=== PATIENT | female | born 1995 | race Caucasian/White ===

== ENCOUNTER 2016-12-31 11:55 | Emergency (ER) | payer OTHER ==
[2016-12-31 12:03] VITALS: BP 126/71; PULSE 91; TEMP 98.2; BMI 29.2
--- NOTE | 2016-12-31 12:53 | PDOC ---
History of Present Illness - General Chief Complaint: Back Pain Stated Complaint: LOWER BACK PAIN Time Seen by Provider: 12/31/16 12:39 History Source: Patient Exam Limitations: No Limitations - History of Present Illness Initial Comments: 12/31/16 12:53 My chief complaint: Lower back pain for 2 weeks History of present illness: Patient is a 21-year-old female with a history of asthma here today planing of continuous lower back pain 2 weeks. Patient reports that she works at [employer] at this heavy lifting. Patient also reports that she was seen 6 days ago at [facility] emergency room had an x-ray of her back that showed nothing and was given a prescription for ibuprofen and cyclobenzaprine. Patient returned 2 days later due to continued pain and lower back. Patient reports that it is hard to get up from a lying down position. Patient denies any radiation of pain down her buttocks but slightly bilaterally to towards hips. Patient denies any incontinency or any tingling of her legs. Patient is unsure status. Patient last took ibuprofen last night. Patient currently reports the pain is a 6 out of 10. 12/31/16 14:17 12/31/16 14:17 Occurred: reports: other (2 weeks ) Severity: reports: moderate Pain Location: reports: back (lower back radiates intermittently to b/l hip area ) Method of Injury: Yes: other Modifying Factors: improves with: None Loss of Consciousness: no loss of consciousness Associated Symptoms (Fall): denies symptoms Past History - Past Medical History Allergies/Adverse Reactions: Allergies Allergy/AdvReac Type Severity Reaction Status Date / Time acetaminophen [From Tylenol] Allergy Severe ANAPHYLAXIS Verified 12/31/16 12:01 Home Medications: Ambulatory Orders Metaxalone [Skelaxin] 800 mg PO TID PRN #15 tablet MDD 3 12/31/16 Naproxen [Naprosyn -] 500 mg PO BID PRN #14 tablet MDD w 12/31/16 Asthma: Yes - Surgical History Abdominal Surgery: Yes Appendectomy: Yes Cholecystectomy: Yes - Suicide/Smoking/Psychosocial Hx Smoking Status: Yes Smoking History: Current every day smoker Have you smoked in the past 12 months: Yes Number of Cigarettes Smoked Daily: 6 Information on smoking cessation initiated: No Hx Alcohol Use: Yes (SOCIAL.) Drug/Substance Use Hx: Yes (MARIJUANA.) Substance Use Type: Alcohol, Marijuana Review of Systems - Review of Systems Able to Perform ROS?: Yes Constitutional: No: Symptoms Reported HEENTM: No: Symptoms Reported Respiratory: No: Symptoms reported Cardiac (ROS): No: Symptoms Reported ABD/GI: No: Symptoms Reported : No: Symptoms Reported Musculoskeletal: Yes: Back Pain (lower back radiates to b/l hip) Integumentary: No: Symptoms Reported Neurological: No: Symptoms reported *Physical Exam - Vital Signs Last Vital Signs Temp Pulse Resp BP Pulse Ox 98.2 F 91 H 18 126/71 99 12/31/16 11:57 12/31/16 11:57 12/31/16 11:57 12/31/16 11:57 12/31/16 11:57 - Physical Exam General Appearance: Yes: Appropriately Dressed Respiratory/Chest: positive: Lungs Clear, Normal Breath Sounds. negative: Chest Tender, Respiratory Distress Cardiovascular: positive: Regular Rhythm, Regular Rate, S1, S2 Vascular Pulses: Dorsalis-Pedis (R): 4+, Doralis-Pedis (L): 4+ Musculoskeletal: positive: Normal Inspection, Decreased Range of Motion (from waist with flexion), Other (tenderness b/l paraspinal lumbar muscles, no step off ). negative: CVA Tenderness, CVA Tenderness (R), CVA Tenderness (L), Vertebral Tenderness Extremity: positive: Normal Capillary Refill, Normal Inspection, Normal Range of Motion Integumentary: positive: Normal Color Neurologic: positive: Alert, Normal Response, Motor Strength 5/5 (legs b/l ), Respond to painful stimul (legs b/l ), Responsive. negative: Numbness, Sensory Deficit Deep Tendon Reflexes: Knee (L): 4+, Knee (R): 4+ Medical Decision Making - Medical Decision Making 12/31/16 13:41 12/31/16 14:17 Patient is a 21-year-old female with a history of asthma here today planing of continuous lower back pain 2 weeks. Patient reports that she works at [employer] at this heavy lifting. Patient also reports that she was seen 6 days ago at [facility] emergency room had an x-ray of her back that showed nothing and was given a prescription for ibuprofen and cyclobenzaprine. Patient returned 2 days later due to continued pain and lower back. Patient reports that it is hard to get up from a lying down position. Patient denies any radiation of pain down her buttocks but slightly bilaterally to towards hips. Patient denies any incontinency or any tingling of her legs. Patient is unsure status. Patient last took ibuprofen last night. Patient currently reports the pain is a 6 out of 10. lower back pain PLAN: urine HCG negative Toradol 60 mg IM skelaxin 500 mg tid prn muscle spasm X 15 Naprosyn 500 mg bid prn pain # 14 Patient has less pain currently however still has some muscle spasm and lower back will give Valium 5 mg by mouth now 12/31/16 14:51 *DC/Admit/Observation/Transfer Diagnosis at time of Disposition: Low back pain Qualifiers: Chronicity: acute Back pain laterality: bilateral Sciatica presence: without sciatica Qualified Code(s): M54.5 - Low back pain - Discharge Dispostion Disposition: HOME Condition at time of disposition: Stable - Prescriptions Prescriptions: Naproxen [Naprosyn -] 500 mg PO BID PRN #14 tablet MDD w PRN Reason: Pain Metaxalone [Skelaxin] 800 mg PO TID PRN #15 tablet MDD 3 PRN Reason: Muscle Spasms - Referrals Referrals: Piotr Vivar MD [Staff Physician] - - Patient Instructions Additional Instructions: Avoid any strenuous activities or lifting Follow up with orthopedist as soon as possible for further evaluation Return to emergency room if symptoms worsen or new symptoms develop Patient voiced understanding of discharge instructions and all questions were answered - Post Discharge Activity Forms/Work/School Notes: Back to Work
[2016-12-31] MEDS ORDERED: KETOROLAC TROMETHAMINE 60 MG/2 ML VIAL IM ONE (13:29)
[2016-12-31] MEDS ORDERED: KETOROLAC TROMETHAMINE 60 MG/2 ML VIAL ONE (13:32)
[2016-12-31] MEDS ORDERED: diazePAM 5 MG TABLET PO ONE (14:16)
[2016-12-31] MEDS ORDERED: diazePAM 5 MG TABLET ONE (14:18)
== END 2016-12-31 14:59 | disposition home or self-care (01) ==
LOC: JERFT 11:55
PROC: 3E0233Z Introduction of Anti-inflammatory into Muscle, Percutaneous Approach (ICD-10-PCS; principal; 2016-12-31)
DX: M54.5 Low back pain (principal)
CPT/HCPCS: 84703; 99281-25

== ENCOUNTER 2017-01-11 17:20 | Emergency (ER) | payer OTHER ==
[2017-01-11 17:24] VITALS: BP 122/73; PULSE 110; TEMP 98; BMI 31.2
[2017-01-11] MEDS ORDERED: KETOROLAC TROMETHAMINE 60 MG/2 ML VIAL IM ONE (18:00)
[2017-01-11] MEDS ORDERED: KETOROLAC TROMETHAMINE 60 MG/2 ML VIAL ONE (18:05)
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
== END 2017-01-11 19:53 | disposition home or self-care (01) ==
LOC: JER 17:20 → JERFT 17:20
PROC: 3E0233Z Introduction of Anti-inflammatory into Muscle, Percutaneous Approach (ICD-10-PCS; principal; 2017-01-11)
DX: S30.0XXA Contusion of lower back and pelvis, initial encounter (principal); S70.02XA Contusion of left hip, initial encounter; V89.2XXA Person injured in unspecified motor-vehicle accident, traffic, initial encounter; Y93.89 Activity, other specified; Y92.414 Local residential or business street as the place of occurrence of the external cause; Y99.8 Other external cause status
CPT/HCPCS: 72100-TC; 73523-TC; 84703; 96372; 99281-25

== ENCOUNTER 2017-07-03 10:26 | Emergency (ER) | payer OTHER ==
[2017-07-03 10:31] VITALS: BP 115/69; PULSE 100; TEMP 98.4; BMI 31.2
[2017-07-03] MEDS ORDERED: ALBUTEROL SO4 2.5/IPRATROPIUM 0.5 INH SOL 3 ML VIAL.NEB. NEB ONE ×2 (11:03→11:14)
--- NOTE | 2017-07-03 11:22 | PDOC ---
History of Present Illness - General Chief Complaint: Cold Symptoms Stated Complaint: FLU LIKE SYMPTOMS Time Seen by Provider: 07/03/17 10:53 History Source: Patient Exam Limitations: No Limitations - History of Present Illness Initial Comments: 07/03/17 and came for evaluation of cough, runny nose, generalized body aches, and fevers. States has had thick yellow phlegm production with cough, and fevers Tmax 101.8. Timing/Duration: reports: getting worse Severity: reports: mild, moderate Associated Symptoms: reports: cough, fever/chills, nasal congestion, nasal drainage Past History - Travel Traveled outside of the country in the last 30 days: No Close contact w/someone who was outside of country & ill: No - Past Medical History Allergies/Adverse Reactions: Allergies Allergy/AdvReac Type Severity Reaction Status Date / Time acetaminophen [From Tylenol] Allergy Severe ANAPHYLAXIS Verified 07/03/17 10:31 Home Medications: Ambulatory Orders Albuterol Sulfate [Proventil HFA Inhaler -] 1 - 2 inh PO QID #1 inhaler Azithromycin [Zithromax -] 250 mg PO UTDICT #6 tab 07/03/17 Asthma: Yes COPD: No - Surgical History Abdominal Surgery: Yes Appendectomy: Yes Cholecystectomy: Yes - Suicide/Smoking/Psychosocial Hx Smoking Status: Yes Smoking History: Current every day smoker Have you smoked in the past 12 months: Yes Number of Cigarettes Smoked Daily: 10 Information on smoking cessation initiated: Yes 'Breaking Loose' booklet given: 07/03/17 Hx Alcohol Use: No Drug/Substance Use Hx: No Substance Use Type: Alcohol, Marijuana Review of Systems - Review of Systems Able to Perform ROS?: Yes Is the patient limited Sinhala proficient: Yes Constitutional: Yes: Symptoms Reported, See HPI, Fever, Malaise HEENTM: Yes: See HPI, Ear Discharge, Nose Congestion. No: Symptoms Reported Respiratory: Yes: Symptoms reported, See HPI, Cough, Wheezing ABD/GI: Yes: See HPI, Nausea. No: Symptoms Reported : No: Symptoms Reported Integumentary: Yes: Symptoms Reported All Other Systems: Reviewed and Negative *Physical Exam - Vital Signs Last Vital Signs Temp Pulse Resp BP Pulse Ox 98.4 F 100 H 18 115/69 99 07/03/17 10:29 07/03/17 10:29 07/03/17 10:29 07/03/17 10:29 07/03/17 10:29 - Physical Exam General Appearance: Yes: Nourished, Appropriately Dressed. No: Apparent Distress HEENT: positive: YEHUDA, TMs Normal, Pharynx Normal, Nasal Congestion, Rhinorrhea Neck: positive: Tender, Supple, Lymphadenopathy (R), Lymphadenopathy (L) Respiratory/Chest: positive: Lungs Clear, Normal Breath Sounds, Wheezing. negative: Chest Tender Gastrointestinal/Abdominal: positive: Soft. negative: Normal Bowel Sounds Extremity: positive: Normal Capillary Refill, Normal Inspection, Normal Range of Motion Integumentary: positive: Dry, Warm, Pale Neurologic: positive: Fully Oriented, Alert, Normal Mood/Affect, Normal Response , Motor Strength 5/5 Progress Note - Progress Note Progress Note: Bronchitis, will treat with azithromycin and continued Proventil. *DC/Admit/Observation/Transfer Diagnosis at time of Disposition: URI, acute - Discharge Dispostion Disposition: HOME Condition at time of disposition: Stable Admit: No - Prescriptions Prescriptions: Albuterol Sulfate [Proventil HFA Inhaler -] 1 - 2 inh PO QID #1 inhaler Azithromycin [Zithromax -] 250 mg PO UTDICT #6 tab - Referrals - Patient Instructions Printed Discharge Instructions: DI for Acute Bronchitis Additional Instructions: Rest, drink lots of fluids: Teas, water, soups, Pedialyte Saltwater gargles Steamy showers/seem to face break up mucus Avoid contact with others until fevers and cough resolved Lots of handwashing and good hygiene Continue [id number] medications for symptomatic relief Tylenol or Motrin for fever and pain Continue albuterol nebulizers every 4-6 hours for the next 2 days then as needed for continued cough Azithromycin as directed Followup with private physician in one to 2 days Return to emergency department / pediatric hospital for worsened symptoms, fevers, dehydration - Post Discharge Activity Forms/Work/School Notes: Back to Work
== END 2017-07-03 11:33 | disposition home or self-care (01) ==
LOC: JERFT 10:26
PROC: 3E0F7GC Introduction of Other Therapeutic Substance into Respiratory Tract, Via Natural or Artificial Opening (ICD-10-PCS; principal; 2017-07-03)
DX: J06.9 Acute upper respiratory infection, unspecified (principal); F17.210 Nicotine dependence, cigarettes, uncomplicated
CPT/HCPCS: 84703; 94640; 99281-25

== ENCOUNTER 2017-07-30 09:41 | Emergency (ER) | payer OTHER ==
[2017-07-30 09:56] VITALS: TEMP 98.3; BMI 31.2
--- NOTE | 2017-07-30 10:13 | PDOC ---
History of Present Illness - General History Source: Patient Exam Limitations: No Limitations - History of Present Illness Initial Comments: 07/30/17 10:42 The patient is a 21-year-old female, with a significant past medical history of asthma, who presents to the ED with 2 days of bilateral abdominal cramping and lower back pain. She describes the pain as intermittent (lasting 3-4 hours before resolving on its own), tight and crampy in sensation, 7/10 in severity, with radiation to suprapubic area, exacerbated when lying down, and alleviated with sitting up. The patient also reports associated nausea, shortness of breath , and lightheadedness. The patient's last menstrual period was at the beginning of June and was normal; she is unsure if she could be . She denies taking any contraceptives. The patient denies any fever, chills, vomiting, or diarrhea. Denies any chest pain. Allergies: acetaminophen Surgical History: Appendectomy, Cholecystectomy <Araseli Greene - Last Filed: 07/30/17 10:41> <Chanell Henley - Last Filed: 07/30/17 11:50> - General Chief Complaint: Pain Stated Complaint: ABD PAIN Time Seen by Provider: 07/30/17 10:06 Past History <Araseli Greene - Last Filed: 07/30/17 10:41> - Past Medical History Asthma: Yes COPD: No - Surgical History Abdominal Surgery: Yes Appendectomy: Yes Cholecystectomy: Yes - Suicide/Smoking/Psychosocial Hx Smoking Status: Yes Smoking History: Current every day smoker Have you smoked in the past 12 months: Yes Number of Cigarettes Smoked Daily: 5 Information on smoking cessation initiated: No 'Breaking Loose' booklet given: 07/03/17 Hx Alcohol Use: Yes (occasional) Drug/Substance Use Hx: No Substance Use Type: Marijuana <Chanell Henley - Last Filed: 07/30/17 11:50> - Past Medical History Allergies/Adverse Reactions: Allergies Allergy/AdvReac Type Severity Reaction Status Date / Time acetaminophen [From Tylenol] Allergy Severe ANAPHYLAXIS Verified 07/30/17 09:56 Home Medications: Ambulatory Orders Albuterol Sulfate [Proventil HFA Inhaler -] 1 - 2 inh PO QID #1 inhaler Azithromycin [Zithromax -] 250 mg PO UTDICT #6 tab 07/03/17 Ibuprofen [Motrin -] 600 mg PO TID PRN #15 tablet 07/30/17 Review of Systems - Review of Systems Able to Perform ROS?: Yes Comments:: 07/30/17 10:45 GENERAL/CONSTITUTIONAL: No fever or chills. No weakness. HEAD, EYES, EARS, NOSE AND THROAT: No change in vision. No ear pain or discharge. No sore throat. CARDIOVASCULAR: (+)shortness of breath. No chest pain. RESPIRATORY: No cough, wheezing, or hemoptysis. GASTROINTESTINAL: (+)Nausea. No vomiting, diarrhea or constipation. GENITOURINARY: No dysuria, frequency, or change in urination. MUSCULOSKELETAL: (+)Lower back pain. No joint swelling or pain. No neck. SKIN: No rash NEUROLOGIC: (+)lightheadedness. No headache, vertigo, loss of consciousness, or change in strength/sensation. ENDOCRINE: No increased thirst. No abnormal weight change. HEMATOLOGIC/LYMPHATIC: No anemia, easy bleeding, or history of blood clots. ALLERGIC/IMMUNOLOGIC: No hives or skin allergy. <Araseli Greene - Last Filed: 07/30/17 10:41> *Physical Exam - Vital Signs Last Vital Signs Temp Pulse Resp BP Pulse Ox 98.3 F 79 17 112/63 100 07/30/17 09:47 07/30/17 09:47 07/30/17 09:47 07/30/17 09:47 07/30/17 09:47 - Physical Exam Comments: 07/30/17 11:00 GENERAL: Awake, alert, and fully oriented, in no acute distress HEAD: No signs of trauma EYES: PERRLA, EOMI, sclera anicteric, conjunctiva clear ENT: Auricles normal inspection, hearing grossly normal, nares patent, oropharynx clear without exudates. Moist mucosa NECK: Normal ROM, supple, no lymphadenopathy, JVD, or masses LUNGS: Breath sounds equal, clear to auscultation bilaterally. No wheezes, and no crackles HEART: Regular rate and rhythm, normal S1 and S2, no murmurs, rubs or gallops ABDOMEN: (+)suprapubic and bilateral pelvic tenderness to palpation. Soft, normoactive bowel sounds. No guarding, no rebound. No masses MSK: No CVA tenderness. EXTREMITIES: Normal range of motion, no edema. No clubbing or cyanosis. No cords, erythema, or tenderness NEUROLOGICAL: Cranial nerves II through XII grossly intact. Normal speech, normal gait SKIN: Warm, Dry, normal turgor, no rashes or lesions noted <Araseli Greene - Last Filed: 07/30/17 10:41> - Vital Signs Last Vital Signs Temp Pulse Resp BP Pulse Ox 98.3 F 79 17 112/63 100 07/30/17 09:47 07/30/17 09:47 07/30/17 09:47 07/30/17 09:47 07/30/17 09:47 <Chanell Henley - Last Filed: 07/30/17 11:50> ED Treatment Course - LABORATORY CBC & Chemistry Diagram: 07/30/17 10:18 - ADDITIONAL ORDERS Additional order review: Laboratory Results 07/30/17 10:18 Urine Color Straw Urine Appearance Slcloudy Urine pH 5.0 Ur Specific [place] 1.012 Urine Protein Negative Urine Glucose (UA) Negative Urine Ketones Negative Urine Blood Negative Urine Nitrite Negative Urine Bilirubin Negative Urine Urobilinogen Negative Ur Leukocyte Esterase Negative - Medications Given in the ED: ED Medications Discontinued Medications Generic Name Dose Route Start Last Admin Trade Name Freq PRN Reason Stop Dose Admin Ondansetron HCl 4 mg 07/30/17 10:25 07/30/17 10:29 Zofran Odt - SL 07/30/17 10:26 4 mg ONCE ONE Administration <Araseli Greene - Last Filed: 07/30/17 10:41> - LABORATORY CBC & Chemistry Diagram: 07/30/17 10:40 07/30/17 10:18 <Chanell Henley - Last Filed: 07/30/17 11:50> Medical Decision Making - Medical Decision Making 07/30/17 10:40 a/p: 21yo female with 2 days of crampy lower abd pain that radiates to her back assoc with nausea -concern for poss -normal bm today, no vomiting, no f/c -c/o breast tenderness today and for a baxter yesterday -c/o clear vaginal discharge -will obtain labs, pelvic u/s, beta hcg, type and scree -will monitor and reassess 07/30/17 11:44 re-eval: labs reviewed ovarian cyst on ultrasound normal renal, liver, pancreas labs ua clean pt states feeling much better discussed beta negative and patient is not discussed followup with her HUMAN SERVICE SPECIALIST - pt states she needs a referral for scraper hand follow up answered all questions stable for d/c to home <Chanell Henley - Last Filed: 07/30/17 11:50> *DC/Admit/Observation/Transfer - Attestations Scribe Attestion: 07/30/17 11:02 Documentation prepared by Araseli Greene, acting as medical record librarian for Chanell Henley DO. <Araseli Greene - Last Filed: 07/30/17 10:41> - Discharge Dispostion Admit: No - Attestations Physician Attestion: 07/30/17 11:50 I, Dr. Chanell Henley DO, attest that this document has been prepared under my direction and personally reviewed by me in its entirety. I further attest, that it accurately reflects all work, treatment, procedures and medical decision -making performed by me. <Chanell Henley - Last Filed: 07/30/17 11:50> Diagnosis at time of Disposition: Low back pain, Abdominal pain, Ovarian cyst - Discharge Dispostion Disposition: HOME Condition at time of disposition: Stable - Prescriptions Prescriptions: Ibuprofen [Motrin -] 600 mg PO TID PRN #15 tablet PRN Reason: Pain - Referrals Referrals: Heladio Miles MD [Staff Physician] - Stephy Mcfadden MD [Staff Physician] - - Patient Instructions Printed Discharge Instructions: DI for Ovarian Cyst, DI for Abdominal Pain- Adult Additional Instructions: Please take all meds as prescribed. Please make an appointment to see the ob/ quick mixer operator. Please return to the ED with any further concerns or complaints. Please also follow up with your HUMAN SERVICE SPECIALIST. - Post Discharge Activity Forms/Work/School Notes: Back to Work
[2017-07-30] MEDS ORDERED: ONDANSETRON *ODT* 4 MG TABLET SL ONE (10:25)
[2017-07-30 10:31] LABS: URINE APPEARANCE SLCLOUDY; URINE BILIRUBIN NEGATIVE (<2.0 mg/dL); URINE COLOR STRAW; URINE GLUCOSE (UA) NEGATIVE (NEGATIVE); URINE KETONE NEGATIVE (NEGATIVE); URINE LEUK ESTERASE NEGATIVE (NEGATIVE); URINE NITRITE NEGATIVE (NEGATIVE); URINE PROTEIN NEGATIVE (NEGATIVE); URINE UROBILINOGEN NEGATIVE mg/dL (0.2-1.0)
[2017-07-30] MEDS ORDERED: ONDANSETRON *ODT* 4 MG TABLET ONE (10:36)
[2017-07-30 10:56] LABS: ALBUMIN 3.7 g/dl (3.4-5.0); ANION GAP 8 (8-16); BILIRUBIN,TOTAL 0.2 mg/dL (0.2-1.0); BLOOD UREA NITROGEN 14 mg/dL (7-18); CALCIUM 8.3 mg/dL (8.5-10.1); CHLORIDE 107 mmol/L (98-107); CO2 26 mmol/L (21-32); CREATININE 0.6 mg/dL (0.55-1.02); GLUCOSE,RANDOM 92 mg/dL (74-106); POTASSIUM 4.6 mmol/L (3.5-5.1); SGOT/AST 17 U/L (15-37); SGPT/ALT 20 U/L (12-78); SODIUM 141 mmol/L (136-145); TOT PROT 6.6 g/dl (6.4-8.2)
[2017-07-30 10:58] LABS: ALK PHOS 100 U/L (45-117)
[2017-07-30 11:17] LABS: BASO % 0.8 % (0-2.0); EOS % 2.9 % (0-4.5); HEMATOCRIT 43.3 % (32.4-45.2); HEMOGLOBIN 14.4 GM/dL (10.7-15.3); LYMPH % 20.6 % (8-40); MCH 29.3 pg (25.7-33.7); MCHC 33.2 g/dl (32.0-36.0); MEAN PLT VOLUME 8.6 fl (7.5-11.1); MONO % 8.2 % (3.8-10.2); NEUT % 67.5 % (42.8-82.8); RBC 4.92 M/mm3 (3.60-5.2); RDW 13.9 % (11.6-15.6); WHITE BLOOD COUNT 8.9 K/mm3 (4.0-10.0)
[2017-07-30] MEDS ORDERED: IBUPROFEN 600 MG TABLET (FP) PO ONE ×2 (11:19→11:44)
[2017-07-30 11:47] LABS: PLATELET COUNT 230 K/MM3 (134-434)
[2017-07-30 12:10] VITALS: BP 101/68; PULSE 59
== END 2017-07-30 12:10 | disposition home or self-care (01) ==
LOC: JER 09:41
DX: N83.201 Unspecified ovarian cyst, right side (principal); F17.210 Nicotine dependence, cigarettes, uncomplicated
CPT/HCPCS: 36415; 76817-TC; 80053; 81003; 83690; 84702; 85025; 86850; 86900; 86901; 99282-25; Q0162

== ENCOUNTER 2018-06-25 18:46 | Emergency (ER) | payer OTHER ==
[2018-06-25 18:56] VITALS: BP 126/78; PULSE 114; BMI 30.8
--- NOTE | 2018-06-25 20:04 | PDOC ---
History of Present Illness - General Chief Complaint: Injury Stated Complaint: LEFT ANKLE INJURY Time Seen by Provider: 06/25/18 19:37 Past History - Past Medical History Allergies/Adverse Reactions: Allergies Allergy/AdvReac Type Severity Reaction Status Date / Time acetaminophen [From Tylenol] Allergy Severe ANAPHYLAXIS Verified 06/25/18 18:55 Home Medications: Ambulatory Orders Ibuprofen 800 mg PO TID #30 tablet 06/25/18 oxyCODONE HCL [Roxicodone -] 5 mg PO Q6H #15 tablet MDD 4 06/25/18 Asthma: Yes COPD: No - Surgical History Abdominal Surgery: Yes Appendectomy: Yes Cholecystectomy: Yes - Suicide/Smoking/Psychosocial Hx Smoking Status: Yes Smoking History: Never smoked Have you smoked in the past 12 months: Yes Number of Cigarettes Smoked Daily: 10 'Breaking Loose' booklet given: 07/03/17 Hx Alcohol Use: No Drug/Substance Use Hx: No Substance Use Type: Alcohol, Marijuana *Physical Exam - Vital Signs Last Vital Signs Temp Pulse Resp BP Pulse Ox 114 H 18 126/78 98 06/25/18 18:52 06/25/18 18:52 06/25/18 18:52 06/25/18 18:52 *DC/Admit/Observation/Transfer Diagnosis at time of Disposition: Ankle sprain Qualifiers: Encounter type: initial encounter Involved ligament of ankle: unspecified ligament Laterality: left Qualified Code(s): S93.402A - Sprain of unspecified ligament of left ankle, initial encounter Navicular fracture of ankle Qualifiers: Encounter type: initial encounter Fracture type: closed Fracture alignment: nondisplaced Laterality: left Qualified Code(s): S92.255A - Nondisplaced fracture of navicular [scaphoid] of left foot, initial encounter for closed fracture - Discharge Dispostion Disposition: HOME Condition at time of disposition: Stable Decision to Admit order: No - Prescriptions Prescriptions: Ibuprofen 800 mg PO TID #30 tablet oxyCODONE HCL [Roxicodone -] 5 mg PO Q6H #15 tablet MDD 4 - Referrals Referrals: Piotr Vivar MD [Staff Physician] - - Patient Instructions Printed Discharge Instructions: DI for Foot Fracture, DI for Ankle Sprain Additional Instructions: You sprained your ankle. You also have a fracture of the navicular bone in your foot Your ultrasound was negative for fracture Wear the hard sole shoe and use the crutches until you can see orthopedics Please keep your ankle elevated while at rest above the level of your heart to reduce swelling. You may take Motrin 800 mg every 8 hours to help reduce pain and swelling. You may take Roxicodone every 6 hours as needed for break through pain. Do not drink or drive after taking this medication as it may make you sleepy. Please ice the area for 20 minute intervals at least 5 times a day to help reduce swelling. Please wear the Ankit wrap. Please follow-up with orthopedics [email or web address] Return to the emergency department if you have worsening pain, or unable to walk , numbness and tingling of the foot, or had any changes in her symptoms. - Post Discharge Activity Forms/Work/School Notes: Back to Work
[2018-06-25] MEDS ORDERED: oxyCODONE HCL 5 MG TABLET PO ONE (21:10)
[2018-06-25] MEDS ORDERED: IBUPROFEN 600 MG TABLET (FP) PO ONE ×2 (21:11→21:13)
[2018-06-25] MEDS ORDERED: oxyCODONE HCL 5 MG TABLET ONE (21:13)
== END 2018-06-25 23:08 | disposition home or self-care (01) ==
LOC: JERFT 18:46
DX: S92.255A Nondisplaced fracture of navicular [scaphoid] of left foot, initial encounter for closed fracture (principal); S93.402A Sprain of unspecified ligament of left ankle, initial encounter; X50.1XXA Overexertion from prolonged static or awkward postures, initial encounter; Y93.01 Activity, walking, marching and hiking; Y92.89 Other specified places as the place of occurrence of the external cause; Y99.8 Other external cause status
CPT/HCPCS: 73610-TC-LT-FY; 73630-TC-LT; 93971-TC; 99281-25

== ENCOUNTER 2019-12-11 11:40 | Emergency (ER) | payer OTHER ==
--- NOTE | 2019-12-11 11:49 | PDOC ---
Rapid Medical Evaluation Time Seen by Provider: 12/11/19 11:45 Medical Evaluation: Allergies Allergy/AdvReac Type Severity Reaction Status Date / Time acetaminophen [From Tylenol] Allergy Severe ANAPHYLAXIS Verified 12/11/19 11:42 12/11/19 11:47 I have performed a brief in-person evaluation of this patient The patient presents with a chief complaint of:n/v/d w/ abd pain x 1 week. No weakness/dizziness, uri sxs, f/c. No recent travel or sick contacts Pertinent physical exam findings:stable, well warren I have ordered the following:ua/upreg The patient will proceed to the ED for further evaluation Discharge Disposition - Diagnosis Nausea and vomiting Qualifiers: Vomiting type: unspecified Vomiting Intractability: intractable Qualified Code(s): R11.2 - Nausea with vomiting, unspecified Diarrhea Qualifiers: Diarrhea type: unspecified type Qualified Code(s): R19.7 - Diarrhea, uns pecified - Referrals - Patient Instructions - Post Discharge Activity
[2019-12-11 11:51] VITALS: BMI 34.2
[2019-12-11 12:52] LABS: HCG,QUALITATIVE URINE Positive; PH,URINE 5.5 (5.0-8.0); URINE APPEARANCE CLEAR; URINE BILIRUBIN NEGATIVE (NEGATIVE); URINE COLOR YELLOW; URINE GLUCOSE (UA) NEGATIVE (NEGATIVE); URINE KETONE 1+ (NEGATIVE); URINE LEUK ESTERASE NEGATIVE (NEGATIVE); URINE NITRITE NEGATIVE (NEGATIVE); URINE PROTEIN NEGATIVE (NEGATIVE)
--- NOTE | 2019-12-11 12:52 | PDOC ---
History of Present Illness - General Chief Complaint: Pain, Acute Stated Complaint: ABD PAIN Time Seen by Provider: 12/11/19 11:45 History Source: Patient Exam Limitations: No Limitations - History of Present Illness Travel History: No Initial Comments: 12/11/19 12:31 24-year-old female presents to ED with complaints of nausea and vomiting and lower to mid back pain since yesterday. 24-year-old female presents to ED with complaints of diarrhea last week now with normal bowel movements but continues with intermittent nausea especially in the morning and evening hours. Patient also complaining of lower abdominal pain for the past few days which de scribes as a cramp-like sensation without radiation to her back as initially stated in triage. Patient denies vaginal discharge but states her menses is due any day now. Patient unsure if she is but denies any recent travel recent illness, recent sick contacts. 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 Timing/Duration: reports: changing over time Quality: reports: mild, cramping Abdominal Pain Onset Location: reports: suprapubic Aggravating Factors: improves with: None Alleviating Factors: improves with: None Past History - Travel History Traveled outside of the country in the last 30 days: No Close contact w/someone who was outside of country & ill: No - Medical History Allergies/Adverse Reactions: Allergies Allergy/AdvReac Type Severity Reaction Status Date / Time acetaminophen [From Tylenol] Allergy Severe ANAPHYLAXIS Verified 12/11/19 12:21 Home Medications: Ambulatory Orders NK [No Known Home Medication] 12/11/19 Asthma: Yes COPD: No - Surgical History Abdominal Surgery: Yes Appendectomy: Yes Cholecystectomy: Yes - Reproductive History Is Patient Now?: No - Psycho-Social/Smoking History Patient Lives Alone: No Lives with/in: parents Smoking Status: Yes Smoking History: Unknown if ever smoked Have you smoked in the past 12 months: Yes Number of Cigarettes Smoked Daily: 10 'Breaking Loose' booklet given: 07/03/17 - Substance Abuse Hx (Audit-C & DAST Scrn) How often the patient has a drink containing alcohol: Monthly or less Score: In Men: 4 or > Positive; In Women: 3 or > Positive: 1 Screen Result (Pos requires Nsg. Audit-10AR): Negative In the last yr the pt used illegal drug/Rx for NonMed reason: No Score: Yes response is considered Positive: 0 Screen Result (Positive result requires Nsg. DAST-10): Negative Review of Systems - Review of Systems Able to Perform ROS?: No Is the patient limited [place] proficient: No Constitutional: No: Symptoms Reported HEENTM: No: Symptoms Reported Respiratory: No: Symptoms reported Cardiac (ROS): No: Symptoms Reported ABD/GI: Yes: Diarrhea, Nausea, Vomiting, Abdominal cramping : No: Symptoms Reported Musculoskeletal: No: Symptoms Reported Integumentary: No: Symptoms Reported Neurological: No: Symptoms reported Endocrine: No: Symptoms Reported Hematologic/Lymphatic: No: Symptoms Reported *Physical Exam - Vital Signs Last Vital Signs Temp Pulse Resp BP Pulse Ox 98.1 F 81 18 116/77 99 12/11/19 11:49 12/11/19 11:49 12/11/19 11:49 12/11/19 11:49 12/11/19 11:49 - Physical Exam General Appearance: Yes: Nourished, Appropriately Dressed. No: Apparent Di stress HEENT: positive: EOMI. negative: Pale Conjunctivae Neck: positive: Normal Thyroid Respiratory/Chest: positive: Lungs Clear, Normal Breath Sounds. negative: Respiratory Distress, Accessory Muscle Use Cardiovascular: positive: Regular Rhythm, Regular Rate. negative: Murmur Gastrointestinal/Abdominal: positive: Soft, Tenderness (Mid suprapubic) Musculoskeletal: negative: CVA Tenderness Extremity: positive: Normal Inspection Integumentary: positive: Normal Color, Warm, Moist Neurologic: positive: Motor Strength 5/5 (Ambulatory) ED Treatment Course - LABORATORY CBC & Chemistry Diagram: 12/11/19 13:06 12/11/19 13:06 Medical Decision Making - Medical Decision Making 12/11/19 13:51 Chief complaint: Patient diarrhea abdominal cramping and nausea with no lower abdominal cramping she states symptoms have changed over the past week but den ies any change in weight, weakness fever, chills or urinary complaints. Exam: Vital signs stable. Patient with suprapubic tenderness on exam. Otherwise normal PE. Plan: Urine labs, and will reevaluate shortly 12/11/19 14:22 Laboratory Tests 12/11/19 12/11/19 12/11/19 12:31 13:06 13:06 WBC 10.0 Hgb 14.2 Hct 43.2 Neutrophils % 68.9 Sodium 140 Potassium 4.2 Chloride 107 Carbon Dioxide 27 Anion Gap 6 L BUN 5.6 L Random Glucose 87 Calcium 8.4 L Magnesium 2.0 Total Bilirubin 0.7 AST 38 H ALT 58 Beta HCG, Quant Pending Urine Ketones 1+ H Ur Leukocyte Esterase Negative Urine HCG, Qual Positive Patient told results of urine test. Beta hCG added along with transvaginal ultrasound to rule out ectopic secondary to suprapubic tenderness. Ased on 12/11/19 16:57 Laboratory Tests 12/11/19 13:06 Beta HCG, Quant 950.5 12/11/19 17:16 Ultrasound shows intrauterine cystic density/gestational sac like structure with a mean sac diameter of 4 mm compatible with 5 weeks of gestation. No pole yolk sacs identified. A small amount of complex fluid is also seen with endometrial cavity. Simple cyst in the right and left ovary as described correlation with serial quantitative serum beta hCG level and close follow-up ultrasound is needed for further evaluation. Patient return here in 48 hours for repeat beta-hCG and ultrasound Discharge - Discharge Information Problems reviewed: Yes Clinical Impression/Diagnosis: Encounter for confirmation of test result with physical examination Nausea and vomiting Qualifiers: Vomiting type: unspecified Vomiting Intractability: intractable Qualified Code(s): R11.2 - Nausea with vomiting, unspecified Diarrhea Qualifiers: Diarrhea type: unspecified type Qualified Code(s): R19.7 - Diarrhea, unspecified Condition: Good Disposition: HOME - Follow up/Referral - Patient Discharge Instructions Patient Printed Discharge Instructions: Nausea of (Alternative Therap y) Additional Instructions: Please return here in 2 days for repeat beta-hCG and ultrasound or sooner if you develop heavy vaginal bleeding or severe abdominal pain. Otherwise you also can follow-up with your [facility] [employer] in 2 days for the same. - Post Discharge Activity Work/Back to School Note: Back to Work
[2019-12-11 13:34] LABS: BASO % 0.5 % (0-2.0); EOS % 1.5 % (0-4.5); HEMATOCRIT 43.2 % (32.4-45.2); HEMOGLOBIN 14.2 GM/dL (10.7-15.3); LYMPH % 21.3 % (8-40); MCH 29.2 pg (25.7-33.7); MCHC 32.9 g/dl (32.0-36.0); MEAN CELL VOLUME 88.7 fl (80-96); MONO % 7.8 % (3.8-10.2); NEUT % 68.9 % (42.8-82.8); PLATELET COUNT 330 K/MM3 (134-434); RBC 4.86 M/mm3 (3.60-5.2); RDW 13.4 % (11.6-15.6)
[2019-12-11 14:07] LABS: BILIRUBIN,TOTAL 0.7 mg/dL (0.2-1); BLOOD UREA NITROGEN 5.6 mg/dL (7-18); CALCIUM 8.4 mg/dL (8.5-10.1); CREATININE 0.7 mg/dL (0.55-1.3); TOT PROT 7.2 g/dl (6.4-8.2)
[2019-12-11 14:10] LABS: POTASSIUM 4.2 mmol/L (3.5-5.1)
[2019-12-11 15:54] VITALS: BP 123/83; PULSE 76; TEMP 98.6
== END 2019-12-11 17:30 | disposition home or self-care (01) ==
LOC: JER 11:40
DX: R11.2 Nausea with vomiting, unspecified (principal); R19.7 Diarrhea, unspecified; Z32.00 Encounter for pregnancy test, result unknown
CPT/HCPCS: 36415; 76817-TC; 80053; 81003; 83735; 84702; 84703; 85025; 87086; 99284-25

== ENCOUNTER 2019-12-13 11:53 | Emergency (ER) | payer OTHER ==
[2019-12-13 12:00] VITALS: BP 125/65; PULSE 86; TEMP 98.8; BMI 34.4
--- NOTE | 2019-12-13 12:55 | PDOC ---
History of Present Illness - General Chief Complaint: [facility] – [place] Stated Complaint: Beta Hcg Time Seen by Provider: 12/13/19 12:14 History Source: Patient Exam Limitations: Clinical Condition - History of Present Illness Initial Comments: 12/13/19 12:51 Patient with no significant past medical history presenting for repeat beta-hCG status post presenting 2 days ago with lower abdominal pain found to have positive with beta of 950 and no clear IUP or ectopic on ultrasound. Patient reported abdominal pain has improved but still have a low pressure in the lower pelvic area. Denies vaginal bleeding, nausea, vomiting, dizziness, fever, chills. Denies any other symptoms. This will be her first . Ultrasound done 2 days ago shows of 5 weeks gestational with questionable gestational sac and no other findings Is this a multiple visit Asthma Patient?: No Timing/Duration: other (2 days) Past History - Medical History Allergies/Adverse Reactions: Allergies Allergy/AdvReac Type Severity Reaction Status Date / Time acetaminophen [From Tylenol] Allergy Severe ANAPHYLAXIS Verified 12/11/19 12:21 Home Medications: Ambulatory Orders NK [No Known Home Medication] 12/11/19 Asthma: Yes COPD: No - Surgical History Abdominal Surgery: Yes Appendectomy: Yes Cholecystectomy: Yes - Reproductive History Is Patient Now?: Yes - Immunization History Immunization Up to Date: No - Psycho-Social/Smoking History Smoking Status: Yes Smoking History: Never smoked Have you smoked in the past 12 months: No Number of Cigarettes Smoked Daily: 10 Information on smoking cessation initiated: No 'Breaking Loose' booklet given: 07/03/17 - Substance Abuse Hx (Audit-C & DAST Scrn) How often the patient has a drink containing alcohol: Never Score: In Men: 4 or > Positive; In Women: 3 or > Positive: 0 Screen Result (Pos requires Nsg. Audit-10AR): Negative In the last yr the pt used illegal drug/Rx for NonMed reason: No Score: Yes response is considered Positive: 0 Screen Result (Positive result requires Nsg. DAST-10): Negative Review of Systems - Review of Systems Able to Perform ROS?: Yes Is the patient limited Wol[place] proficient: No Constitutional: No: Chills, Fever, Malaise HEENTM: No: Symptoms Reported, See HPI, Eye Pain, Blurred Vision, Tearing, Recent change in vision, Double Vision, Cataracts, Ear Pain, Ocular Prothesis, Ear Discharge, Nose Pain, Nose Congestion, Tinnitus, Nose Bleeding, Hearing Loss, Throat Pain, Throat Swelling, Mouth Pain, Dental Problems, Difficulty Swallowing, Mouth Swelling, Other Respiratory: No: Symptoms reported, See HPI, Cough, Orthopnea, Shortness of Breath, SOB with Exertion, SOB at Rest, Stridor, Wheezing, Productive cough, Hemoptysis, Other Cardiac (ROS): No: Symptoms Reported, See HPI, Chest Pain, Edema, Irregular Heart Rate, Lightheadedness, Palpitations, Syncope, Chest Tightness, Other ABD/GI: No: Symptoms Reported, Nausea, Vomiting : No: Symptoms Reported, Burning, Dysuria, Discharge, Frequency, Urgency, Other (vaginal bleeding) Musculoskeletal: No: Symptoms Reported All Other Systems: Reviewed and Negative *Physical Exam - Vital Signs Last Vital Signs Temp Pulse Resp BP Pulse Ox 98.8 F 86 18 125/65 99 12/13/19 11:56 12/13/19 11:56 12/13/19 11:56 12/13/19 11:56 12/13/19 11:56 - Physical Exam General Appearance: Yes: Nourished, Appropriately Dressed. No: Apparent Distress HEENT: positive: Normal ENT Inspection Neck: negative: Supple Respiratory/Chest: positive: Lungs Clear, Normal Breath Sounds. negative: Respiratory Distress, Accessory Muscle Use Cardiovascular: positive: Regular Rhythm, Regular Rate Female Pelvic Exam: negative: vaginal bleeding Gastrointestinal/Abdominal: positive: Normal Bowel Sounds, Flat. negative: Tender, Soft Musculoskeletal: positive: Normal Inspection. negative: CVA Tenderness Extremity: positive: Normal Inspection, Normal Range of Motion Integumentary: positive: Normal Color Neurologic: positive: Fully Oriented, Alert, Normal Mood/Affect, Normal Response, Motor Strength 5/5 Medical Decision Making - Medical Decision Making 12/13/19 12:52 Patient with no significant past medical history presenting for repeat beta-hCG status post presenting 2 days ago with lower abdominal pain found to have positive with beta of 950 and no clear IUP or ectopic on ultrasound. Patient reported abdominal pain has improved but still have a low pressure in the lower pelvic area. Denies vaginal bleeding, nausea, vomiting, dizziness, fever, chills. Denies any other symptoms. This will be her first . Ultrasound done 2 days ago shows of 5 weeks gestational with questionable gestational sac and no other findings Clinical exam unremarkable with no abdominal tenderness. Patient in no acute distress. Repeat beta-hCG ordered. Patient will be discharged to follow-up with [facility] if appropriate rise of beta-hCG 12/13/19 13:38 Beta-hCG 2300 plans which is an appropriate rise. Patient in no acute distress now and stable for discharge to follow-up with OB for care. Patient left department without complication Discharge - Discharge Information Problems reviewed: Yes Clinical Impression/Diagnosis: Abdominal pain in Qualifiers: Trimester: first trimester Qualified Code(s): O26.891 - Other specified related conditions, first trimester Condition: Stable Disposition: HOME - Admission No - Follow up/Referral Referrals: Jaleel Casillas MD [Staff Physician] - - Patient Discharge Instructions Patient Printed Discharge Instructions: Common Discomforts and Bodily Changes During Additional Instructions: Your hormone level is over 2000 which is more than doubled from your hormone 2 days ago. He can take Tylenol as needed for pain. Your urine culture done 2 days ago shows no bacteria in the urine. Follow-up with referred OB to establish care or your own OB - Post Discharge Activity
== END 2019-12-13 13:45 | disposition home or self-care (01) ==
LOC: JERFT 11:53
DX: O26.891 Other specified pregnancy related conditions, first trimester (principal)
CPT/HCPCS: 36415; 84702; 99283-25

== ENCOUNTER 2020-07-31 12:22 | Emergency (ER) | payer OTHER ==
[2020-07-31 12:34] VITALS: BP 123/84; PULSE 95; TEMP 98.6; BMI 39.8
[2020-07-31 13:56] LABS: PH,URINE 6.5 (5.0-8.0); URINE APPEARANCE CLOUDY; URINE BILIRUBIN NEGATIVE (NEGATIVE); URINE COLOR YELLOW; URINE GLUCOSE (UA) NEGATIVE (NEGATIVE); URINE KETONE TRACE (NEGATIVE); URINE LEUK ESTERASE NEGATIVE (NEGATIVE); URINE NITRITE NEGATIVE (NEGATIVE); URINE PROTEIN NEGATIVE (NEGATIVE); URINE UROBILINOGEN 0.2 mg/dL (0.2-1.0)
[2020-07-31 13:58] LABS: HCG,QUALITATIVE URINE Negative
[2020-07-31] MEDS ORDERED: oxyCODONE HCL 5 MG TABLET PO ONE (14:24)
[2020-07-31] MEDS ORDERED: oxyCODONE HCL 5 MG TABLET ONE (14:34)
[2020-07-31 14:46] LABS: BASO % 0.5 % (0-2.0); EOS % 1.8 % (0-4.5); HEMATOCRIT 43.2 % (32.4-45.2); HEMOGLOBIN 14.8 GM/dL (10.7-15.3); LYMPH % 24.2 % (8-40); MCH 30.2 pg (25.7-33.7); MCHC 34.2 g/dl (32.0-36.0); MEAN CELL VOLUME 88.4 fl (80-96); MEAN PLT VOLUME 7.9 fl (7.5-11.1); MONO % 8.2 % (3.8-10.2); NEUT % 65.3 % (42.8-82.8); PLATELET COUNT 330 K/MM3 (134-434); RBC 4.88 M/mm3 (3.60-5.2); RDW 14.2 % (11.6-15.6); WHITE BLOOD COUNT 10.9 K/mm3 (4.0-10.0)
[2020-07-31 15:07] LABS: ALBUMIN 4.3 g/dl (3.4-5.0); BLOOD UREA NITROGEN 13.4 mg/dL (7-18); CALCIUM 9.3 mg/dL (8.5-10.1)
[2020-07-31 15:10] LABS: CREATININE 0.7 mg/dL (0.55-1.3)
[2020-07-31 15:12] LABS: BILIRUBIN,TOTAL 0.3 mg/dL (0.2-1); TOT PROT 7.5 g/dl (6.4-8.2)
[2020-07-31] MEDS ORDERED: AZITHROMYCIN 500 MG TABLET PO ONE (16:48)
[2020-07-31] MEDS ORDERED: AZITHROMYCIN 250 MG TABLET ONE (17:02)
[2020-07-31] MEDS ORDERED: LIDOCAINE HCL 1%, 10 MG/ML (20ML VIAL) ONE (17:05)
[2020-07-31] MEDS ORDERED: KETOROLAC TROMETHAMINE 60 MG/2 ML VIAL IVPUSH ONE (17:52)
[2020-07-31] MEDS ORDERED: KETOROLAC TROMETHAMINE 30 MG/1 ML VIAL ONE (17:53)
== END 2020-07-31 18:00 | disposition home or self-care (01) ==
LOC: JERFT 12:22
PROC: 3E02329 Introduction of Other Anti-infective into Muscle, Percutaneous Approach (ICD-10-PCS; principal; 2020-07-31)
PROC: 3E0333Z Introduction of Anti-inflammatory into Peripheral Vein, Percutaneous Approach (ICD-10-PCS; 2020-07-31)
DX: R10.2 Pelvic and perineal pain (principal)
CPT/HCPCS: 36415; 76830-TC; 80053; 81003; 84703; 85025; 87086; 87491; 87591; 99284-25

== ENCOUNTER 2020-10-20 18:59 | Emergency (ER) | payer OTHER ==
[2020-10-20 19:16] VITALS: BMI 41.0
[2020-10-20 20:36] LABS: EPI CELLS 35 /uL (0-25.1); HYALINE CASTS 1 /uL (0-3.1); URINE APPEARANCE CLOUDY; URINE BACTERIA 287 /uL (0-1359); URINE BILIRUBIN NEGATIVE (NEGATIVE); URINE COLOR YELLOW; URINE GLUCOSE (UA) NEGATIVE (NEGATIVE); URINE KETONE NEGATIVE (NEGATIVE); URINE LEUK ESTERASE 2+ (NEGATIVE); URINE NITRITE NEGATIVE (NEGATIVE); URINE PROTEIN NEGATIVE (NEGATIVE); URINE RBC 29 /uL (0-23.9); URINE UROBILINOGEN 0.2 mg/dL (0.2-1.0); URINE WBC 80 /uL (0-25.8)
[2020-10-20 20:40] LABS: HCG,QUALITATIVE URINE Positive
[2020-10-20 20:58] LABS: BASO % 0.5 % (0-2.0); EOS % 1.6 % (0-4.5); HEMATOCRIT 41.9 % (32.4-45.2); LYMPH % 27.3 % (8-40); MCH 28.9 pg (25.7-33.7); MCHC 33.3 g/dl (32.0-36.0); MEAN CELL VOLUME 86.9 fl (80-96); MEAN PLT VOLUME 8.2 fl (7.5-11.1); MONO % 6.8 % (3.8-10.2); NEUT % 63.8 % (42.8-82.8); PLATELET COUNT 326 10^3/uL (134-434); RBC 4.83 M/mm3 (3.60-5.2); RDW 13.9 % (11.6-15.6); WHITE BLOOD COUNT 12.1 K/mm3 (4.0-10.0)
[2020-10-20 21:22] VITALS: BP 115/89; PULSE 89; TEMP 98.3
[2020-10-20 21:25] LABS: CALCIUM 8.8 mg/dL (8.5-10.1)
[2020-10-20 21:26] LABS: ALBUMIN 3.8 g/dl (3.4-5.0); BLOOD UREA NITROGEN 11.3 mg/dL (7-18)
[2020-10-20 21:29] LABS: CREATININE 0.5 mg/dL (0.55-1.3)
[2020-10-20 21:30] LABS: BILIRUBIN,TOTAL 0.2 mg/dL (0.2-1); TOT PROT 7.1 g/dl (6.4-8.2)
[2020-10-20 22:20] LABS: YEAST NONE SEEN (NEGATIVE)
== END 2020-10-20 22:46 | disposition home or self-care (01) ==
LOC: JER 18:59
DX: O03.9 Complete or unspecified spontaneous abortion without complication (principal); O23.41 Unspecified infection of urinary tract in pregnancy, first trimester
CPT/HCPCS: 36415; 76817-TC; 80053; 81003; 84702; 84703; 85025; 86850; 86900; 86901; 87086; 99284-25

== ENCOUNTER 2021-12-07 16:41 | Emergency (ER) | payer OTHER ==
[2021-12-07 17:21] VITALS: BP 139/91; PULSE 78; RESP 17; TEMP 97.9; BMI 46.8
[2021-12-07] MEDS ORDERED: SODIUM CHLORIDE 0.9% 500 ML INFUS.BAG IV ONE (19:15)
[2021-12-07] MEDS ORDERED: KETOROLAC TROMETHAMINE 30 MG/1 ML VIAL IVPUSH ONE (19:15)
[2021-12-07] MEDS ORDERED: predniSONE 20 MG TABLET (UD) PO ONE (19:15)
[2021-12-07] MEDS ORDERED: predniSONE 20 MG TABLET (UD) ONE (19:36)
[2021-12-07] MEDS ORDERED: KETOROLAC TROMETHAMINE 30 MG/1 ML VIAL ONE (19:48)
== END 2021-12-07 21:19 | disposition home or self-care (01) ==
LOC: JER 16:41
PROC: 3E033GC Introduction of Other Therapeutic Substance into Peripheral Vein, Percutaneous Approach (ICD-10-PCS; principal; 2021-12-07)
DX: U07.1 COVID-19 (principal)
CPT/HCPCS: 71046-TC-FY; 93005; 93010; 99285-25; C9803-CS; U0003; U0005

== ENCOUNTER 2022-06-03 16:09 | Emergency (ER) | payer OTHER ==
[2022-06-03 16:35] VITALS: BP 121/72; PULSE 90; RESP 18; TEMP 98; BMI 44.9
[2022-06-03 19:08] LABS: PH,URINE 6.5 (5.0-8.0); URINE APPEARANCE CLEAR; URINE BILIRUBIN NEGATIVE (NEGATIVE); URINE COLOR YELLOW; URINE GLUCOSE (UA) NEGATIVE (NEGATIVE); URINE KETONE TRACE (NEGATIVE); URINE LEUK ESTERASE NEGATIVE (NEGATIVE); URINE NITRITE NEGATIVE (NEGATIVE); URINE PROTEIN NEGATIVE (NEGATIVE); URINE UROBILINOGEN 0.2 mg/dL (0.2-1.0)
[2022-06-03 19:21] LABS: HCG,QUALITATIVE URINE Negative
== END 2022-06-03 20:04 | disposition home or self-care (01) ==
LOC: JER 16:09 → JERFT 16:09
DX: N64.59 Other signs and symptoms in breast (principal)
CPT/HCPCS: 36415; 81003; 84703; 87086; 87491; 87591; 99283-25

== ENCOUNTER 2022-07-25 07:26 | Emergency (ER) | payer OTHER ==
[2022-07-25 07:34] VITALS: BMI 50.1
[2022-07-25] MEDS ORDERED: IBUPROFEN 600 MG TABLET (FP) PO ONE ×2 (07:56→08:11)
[2022-07-25] MEDS ORDERED: ALBUTEROL SO4 HFA INHALER IH ONE ×2 (10:08→10:40)
[2022-07-25 10:56] VITALS: BP 124/85; PULSE 97; RESP 19; TEMP 98.5
[2022-07-25 18:35] LABS: THROAT:GRP A STREP NOT DETECTED (NOTDETECTED)
== END 2022-07-25 11:33 | disposition home or self-care (01) ==
LOC: JER 07:26
PROC: 3E0F7GC Introduction of Other Therapeutic Substance into Respiratory Tract, Via Natural or Artificial Opening (ICD-10-PCS; principal; 2022-07-25)
DX: R04.0 Epistaxis (principal); R51.9 Headache, unspecified; R50.9 Fever, unspecified; J06.9 Acute upper respiratory infection, unspecified; R53.81 Other malaise; R07.89 Other chest pain; M79.10 Myalgia, unspecified site; R05.1 Acute cough; R09.81 Nasal congestion; R07.0 Pain in throat; M25.572 Pain in left ankle and joints of left foot; Z20.822 Contact with and (suspected) exposure to COVID-19; Z91.81 History of falling
CPT/HCPCS: 0241U-QW; 71046-TC-FY; 73610-TC-LT-FY; 73630-TC-LT; 87651; 94640; 99284-25

== ENCOUNTER 2022-10-23 15:14 | Emergency (ER) | payer OTHER ==
[2022-10-23 15:27] VITALS: BMI 48.8
[2022-10-23] MEDS ORDERED: SODIUM CHLORIDE 0.9% 500 ML INFUS.BAG IV ONE (16:03)
[2022-10-23] MEDS ORDERED: ONDANSETRON 4 MG/2 ML VIAL IVPUSH ONE (16:04)
[2022-10-23 16:42] LABS: EPI CELLS >36 /uL (0-25.1); HYALINE CASTS 0 /uL (0-3.1); PH,URINE 7.5 (5.0-8.0); URINE APPEARANCE TURBID; URINE BACTERIA 687 /uL (0-1359); URINE BILIRUBIN NEGATIVE (NEGATIVE); URINE COLOR YELLOW; URINE GLUCOSE (UA) NEGATIVE (NEGATIVE); URINE KETONE TRACE (NEGATIVE); URINE LEUK ESTERASE TRACE (NEGATIVE); URINE NITRITE NEGATIVE (NEGATIVE); URINE PROTEIN NEGATIVE (NEGATIVE); URINE UROBILINOGEN 0.2 mg/dL (0.2-1.0); URINE WBC 16 /uL (0-25.8)
[2022-10-23] MEDS ORDERED: ONDANSETRON 4 MG/2 ML VIAL ONE (16:46)
[2022-10-23 17:05] LABS: HCG,QUALITATIVE URINE Negative
[2022-10-23] MEDS ORDERED: KETOROLAC TROMETHAMINE 15 MG/ML VIAL IVPUSH ONE (17:50)
[2022-10-23] MEDS ORDERED: KETOROLAC TROMETHAMINE 15 MG/ML VIAL ONE (17:55)
[2022-10-23 18:59] VITALS: BP 128/74; PULSE 70; RESP 14; TEMP 98.3
[2022-10-24 03:49] LABS: URINE RBC 33.7 /uL (0-23.9)
== END 2022-10-23 18:59 | disposition home or self-care (01) ==
LOC: JER 15:14
PROC: 3E033NZ Introduction of Analgesics, Hypnotics, Sedatives into Peripheral Vein, Percutaneous Approach (ICD-10-PCS; principal; 2022-10-23)
PROC: 3E033GC Introduction of Other Therapeutic Substance into Peripheral Vein, Percutaneous Approach (ICD-10-PCS; 2022-10-23)
DX: R19.7 Diarrhea, unspecified (principal)
CPT/HCPCS: 0241U-QW; 81003; 84703; 87086; 99284-25

== ENCOUNTER 2023-06-04 06:21 | Emergency (ER) | payer OTHER ==
[2023-06-04 06:29] VITALS: BP 117/69; PULSE 94; RESP 18; BMI 49.6
[2023-06-04 08:25] LABS: BASO % 0.6 % (0-2.0); EOS % 2.6 % (0-4.5); HEMATOCRIT 43.6 % (32.4-45.2); HEMOGLOBIN 14.3 GM/dL (10.7-15.3); LYMPH % 29.1 % (8-40); MCH 27.7 pg (25.7-33.7); MCHC 32.9 g/dl (32.0-36.0); MEAN CELL VOLUME 84.4 fl (80-96); MEAN PLT VOLUME 8.1 fl (7.5-11.1); MONO % 6.1 % (3.8-10.2); NEUT % 61.6 % (42.8-82.8); PLATELET COUNT 357 10^3/uL (134-434); RBC 5.17 M/mm3 (3.60-5.2); RDW 13.3 % (11.6-15.6); WHITE BLOOD COUNT 12.8 K/mm3 (4.0-10.0)
[2023-06-04] MEDS ORDERED: METOCLOPRAMIDE HCL INJECTION 10 MG/2 ML VIAL ONE (08:35)
[2023-06-04] MEDS: SODIUM CHLORIDE 0.9% 500 ML INFUS.BAG IV ONE (08:41)
[2023-06-04] MEDS: METOCLOPRAMIDE HCL INJECTION 10 MG/2 ML VIAL IVPB ONE (08:41)
[2023-06-04 08:45] LABS: POTASSIUM 4.1 mmol/L (3.5-5.1)
[2023-06-04 08:47] LABS: ALBUMIN 3.5 g/dl (3.4-5.0); CALCIUM 8.4 mg/dL (8.5-10.1)
[2023-06-04 08:52] LABS: BILIRUBIN,TOTAL 0.4 mg/dL (0.2-1); TOT PROT 6.7 g/dl (6.4-8.2)
[2023-06-04 08:54] LABS: BLOOD UREA NITROGEN 6.7 mg/dL (7-18); CREATININE 0.6 mg/dL (0.55-1.3)
[2023-06-04] MEDS ORDERED: KETOROLAC TROMETHAMINE 15 MG/ML VIAL ONE (11:11)
[2023-06-04] MEDS: KETOROLAC TROMETHAMINE 15 MG/ML VIAL IVPUSH ONE (11:12)
== END 2023-06-04 12:17 | disposition home or self-care (01) ==
LOC: JER 06:21
PROC: 3E0333Z Introduction of Anti-inflammatory into Peripheral Vein, Percutaneous Approach (ICD-10-PCS; principal; 2023-06-04)
PROC: 3E033GC Introduction of Other Therapeutic Substance into Peripheral Vein, Percutaneous Approach (ICD-10-PCS; 2023-06-04)
DX: R51.9 Headache, unspecified (principal); M54.2 Cervicalgia; M54.9 Dorsalgia, unspecified
CPT/HCPCS: 36415; 70450-TC; 80053; 84703; 85025; 99284-25